=== PATIENT | male | born 1990 | race Caucasian/White ===

== ENCOUNTER 2025-05-16 07:23 | Emergency (ER) | payer OTHER, SELFPAY ==
[2025-05-16 07:30] VITALS: BP 114/78
--- NOTE | 2025-05-16 08:00 | ED.GENMED ---
History of Present Illness
General
Chief Complaint: Urinary Symptoms
Source: patient
Exam Limitations: none
Time Seen by Provider: 05/16/25 07:52
History of Present Illness
History of Present Illness:
34-year-old male started about a week and a half ago. Some mild urinary frequency. No dysuria. No fever. Mild nausea at times no vomiting. Bowel movements normal. Remote history of kidney stone.
Past History
Past History
ED Past Medical History: Other (Old L2 compression fracture)
ED Past Surgical History: None
Review of Systems
Review of Systems
All Other Systems: Not applicable
Constitutional: Denies fever
Phy Exam
Physical Exam
Physical Exam:
GENERAL: Alert and oriented in no apparent distress
EYE: Orbits normal.
NECK: Supple
CARDIAC: Regular rate and rhythm without any obvious murmurs.
LUNGS: Clear breath sounds,normal
ABDOMEN: Soft, no CVA tenderness. Mild left lower quadrant tenderness. No rash. No rebound or guarding no mass or hernia
NEUROLOGICAL: Alert and oriented , grossly non-focal
SKIN: Warm and dry, no rash or lesion, no discoloration, skin intact.
MUSCULOSKELETAL: No edema,no deformity.Good color
PSYCH: Normal and appropriate interaction.
Course
Orders/Labs/Results
Orders:
Orders
05/16/25 08:13
CMP [Comprehensive Metabolic Panel] Urgent
Complete Blood Count/With Diff Urgent
Urinalysis Reflex To Culture Urgent
Date Specimen was Collected: 05/16/25
Time Specimen was Collected: 07:57
05/16/25 08:43
CT Abd/Pel (IV only)-DH only Urgent
Comment:
Reason For Exam: Left lower quadrant pain
Abnormal Lab Results
05/16/25
08:13
RDW 10.9 L %
(11.5-14.5)
Monocytes % 10.6 H %
(1.7-9.3)
Albumin 5.1 H g/dl
(3.5-5.0)
05/16/25 08:13
05/16/25 08:13
Vital Signs
Initial and Last Documented VS:
Initial Vital Signs
Temp Pulse Resp BP Pulse Ox
97.5 F 63 16 114/78 97
05/16/25 07:30 05/16/25 07:30 05/16/25 07:30 05/16/25 07:30 05/16/25 07:30
Last Documented Vital Signs
Temp Pulse Resp BP Pulse Ox
97.5 F 63 16 114/78 99
05/16/25 07:30 05/16/25 07:30 05/16/25 07:30 05/16/25 07:30 05/16/25 08:07
MDM/Problems Addressed
Differential Diagnosis Includes:
Differential would include kidney stone diverticulitis colitis nonspecific flank or abdominal pain. Workup in progress
*Radiology
Radiology exam reviewed: radiology read reviewed (Negative CT except for L2 old compression fracture)
*Pulse Oximetry
SaO2: 97
Oxygen Mode of Delivery: Room air
Patient hypoxic: no
*Critical Care Note
Total Time (30-74mins, 75-104mins- exclusive of procedures): Not Applicable
Update Note
Update Note:
Etiology of patient's symptoms unknown. No acute findings. Symptomatic treatment and follow-up.
ED Attending Note
-
Portions of this chart may have been created with voice recognition software.� Occasional wrong word or��sound alike� substitutions may have occurred due to the inherent limitations of voice recognition software.
Discharge Plan
Departure
Patient Disposition: Home (Routine Discharge)
Date of Disposition: 05/16/25
Time of Disposition: 10:30
Patient with high blood pressure during this ER visit?: No
Discharge Problem:
Left flank/abdominal pain
Instructions: Abdominal pain in adults - ED discharge instructions, Flank pain - ED discharge instructions
Referrals:
Wilfred Dunlap MD [Family Provider, Internal Medicine] - Follow up in 2-3 days
Activity Restrictions/Additional Instructions:
Advil or Motrin for pain
Get rechecked with increased pain fever vomiting.
Also get rechecked if symptoms or not improving in 2 to 4 days
Interventions
Interventions:
*Risk Screen - Suicide Last Done: 05/16/25 07:30
*General Assessment Last Done: 05/16/25 07:30
*Neglect/Abuse Screening Last Done: 05/16/25 07:30
*ED COVID-19 Vaccine History Last Done: 05/16/25 07:30
ED-Male Genitourinary Assessment Last Done: 05/16/25 08:07
Discharge Date and Time
Print Language: MACEDONIAN
[2025-05-16 08:07] VITALS: BMI 27.6
[2025-05-16 08:10] VITALS: BP 110/73
[2025-05-16 08:28] LABS: Hematocrit 42.6 % (39.0-52.0); Hemoglobin 15.0 g/dL (13.0-18.0); Mean Corp Hgb Conc. 35.2 g/dL (33.0-37.0); Mean Corpuscular Volume 85.5 fL (80.0-94.0); Nucleated Red Blood Cells % 0 % (-); Platelet Count 192 10^3/uL (130-400); Red Cell Dist. Width 10.9 % (11.5-14.5)
[2025-05-16 08:39] LABS: ALT (SGPT) 30 U/L (0-50); AST (SGOT) 29 U/L (17-59); Albumin 5.1 g/dl (3.5-5.0); Alkaline Phosphatase 48 U/L (38-126); Blood Urea Nitrogen 13 mg/dl (9-20); Calcium 9.9 mg/dl (8.4-10.2); Carbon Dioxide 30 mmol/L (22-30); Chloride 102 mmol/L (98-107); Estimated Creatinine Clearance 106 ml/min; Glucose 82 mg/dl (70-99); Potassium 4.0 mmol/L (3.5-5.1); Sodium 140 mmol/L (135-145); Total Protein 8.0 g/dl (6.3-8.2); Urine Character Clear (Clear); eGFR > 60.00
[2025-05-16 09:55] VITALS: BP 109/68
[2025-05-16 10:00] VITALS: BP 107/67
[2025-05-16 11:15] VITALS: BP 110/67
== END 2025-05-16 11:30 | disposition home or self-care (01) ==
LOC: EMR 07:23
PROVIDERS: EMERGENCY PHYSICIAN Emergency Medicine; FAMILY PHYSICIAN Internal Medicine
DX: R10.9 Unspecified abdominal pain (principal); R35.0 Frequency of micturition; Z87.442 Personal history of urinary calculi
CPT/HCPCS: 99284; 74177; 80053; 81003; 85025; Q9967